=== PATIENT | male | born 1980 | race Caucasian/White ===

== ENCOUNTER 2021-02-28 16:21 | Emergency (ER) | payer OTHER ==
[2021-02-28 17:02] LABS: HEMOGLOBIN 14.9 gm/dl (14.0-17.5); RED BLOOD COUNT 4.86 M/UL (4.20-5.50)
[2021-02-28 17:17] LABS: BUN/CREATININE RATIO 14 (0-10)
[2021-02-28] MEDS ORDERED: TORADOL 10 MG T10 MG PO (20:15)
== END 2021-02-28 20:30 | disposition left against medical advice (07) ==
LOC: ER1 16:21
PROVIDERS: Physician Assistant
DX: S13.4XXA Sprain of ligaments of cervical spine, initial encounter (principal); S33.5XXA Sprain of ligaments of lumbar spine, initial encounter; S23.3XXA Sprain of ligaments of thoracic spine, initial encounter; S20.219A Contusion of unspecified front wall of thorax, initial encounter; S00.93XA Contusion of unspecified part of head, initial encounter; F17.210 Nicotine dependence, cigarettes, uncomplicated; I10 Essential (primary) hypertension; E78.5 Hyperlipidemia, unspecified; R09.02 Hypoxemia; S80.01XA Contusion of right knee, initial encounter; V49.3XXA Car occupant (driver) (passenger) injured in unspecified nontraffic accident, initial encounter
CPT/HCPCS: 36600; 70450; 71260; 72072; 72100; 72125; 73564; 80053; 82803; 85025; 93005; 96374; 99284; J1885; Q9967